=== PATIENT | female | born 1965 | race African-American/Black ===

== ENCOUNTER 2017-04-30 13:13 | Observation (INO) | payer MEDICAID ==
[2017-04-30] MEDS ORDERED: ASPIRIN 81 MG CHEWABLE TAB PO ONE (13:35)
--- NOTE | 2017-04-30 13:38 | EDPHY ---
H & P Stated Complaint: L arm numbness, dizziness x few days Time Seen by Provider: 04/30/17 13:25 HPI/ROS: CHIEF COMPLAINT: Chest pain HISTORY OF PRESENT ILLNESS: The patient is a 51-year-old female with no significant past medical history who comes to the emergency department complaining of chest pain. She states that for the last 2 weeks she has had intermittent tingling in her left arm. Yesterday she began having episodes of lightheadedness. Today she had lightheadedness associated with chest pain. She denies shortness of breath. She denies nausea vomiting or diarrhea. She denies recent illness. She does not take any medications. She denies any focal weakness or deficits. No changes in her speech. She did state that she had slightly slurred speech. REVIEW OF SYSTEMS: Constitutional: denies: chills, fever, recent illness, recent injury EENTM: denies: blurred vision, double vision, nose congestion Respiratory: denies: cough, shortness of breath Cardiac: denies: chest pain, irregular heart rate, lightheadedness, palpitations Gastrointestinal/Abdominal: denies: abdominal pain, diarrhea, nausea, vomiting, blood streaked stools Genitourinary: denies: dysuria, frequency, hematuria, pain Musculoskeletal: denies: joint pain, muscle pain Skin: denies: lesions, rash, jaundice, bruising Neurological: denies: headache, numbness, paresthesia, tingling, dizziness, weakness Hematologic/Lymphatic: denies: blood clots, easy bleeding, easy bruising Immunologic/allergic: denies: HIV/AIDS, transplant EXAM: GENERAL: Well-appearing, well-nourished and in no acute distress. HEAD: Atraumatic, normocephalic. EYES: Pupils equal round and reactive to light, extraocular movements intact, sclera anicteric, conjunctiva are normal. ENT: TMs normal, nares patent, oropharynx clear without exudates. Moist mucous membranes. NECK: Normal range of motion, supple without lymphadenopathy or JVD. LUNGS: Breath sounds clear to auscultation bilaterally and equal. No wheezes rales or rhonchi. HEART: Regular rate and rhythm without murmurs, rubs or gallops. ABDOMEN: Soft, nontender, normoactive bowel sounds. No guarding, no rebound. No masses appreciated. BACK: No CVA tenderness, no spinal tenderness, step-offs or deformities EXTREMITIES: Normal range of motion, no pitting or edema. No clubbing or cyanosis. NEUROLOGICAL: Cranial nerves II through XII grossly intact. Normal speech, normal gait. 5/5 strength, normal movement in all extremities, normal sensation PSYCH: Normal mood, normal affect. SKIN: Warm, dry, normal turgor, no visible rashes or lesions. Source: Patient Exam Limitations: No limitations - Personal History LMP (Females 10-55): Post Menopausal Current Tetanus/Diphtheria Vaccine: Unsure Current Tetanus Diphtheria and Acellular Pertussis (TDAP): Unsure - Medical/Surgical History Hx Asthma: No Hx Chronic Respiratory Disease: No Hx Diabetes: No Hx Cardiac Disease: No Hx Renal Disease: No Hx Cirrhosis: No Hx Alcoholism: No Hx HIV/AIDS: No Hx Splenectomy or Spleen Trauma: No Other PMH: denies - Family History Significant Family History: No pertinent family hx - Social History Smoking Status: Never smoked Alcohol Use: Sober Drug Use: None Constitutional: Initial Vital Signs Temperature (C) 37 C 04/30/17 13:17 Heart Rate 86 04/30/17 13:17 Respiratory Rate 15 04/30/17 13:17 Blood Pressure 117/84 H 04/30/17 13:17 O2 Sat (%) 97 04/30/17 13:17 O2 Delivery Mode Room Air Allergies/Adverse Reactions: No Known Allergies Allergy (Unverified 04/30/17 13:17) Home Medications: Medication Instructions Recorded Herbals/Supplements -Info Only 1 ea PO DAILY 04/30/17 Medical Decision Making - Diagnostics EKG Interpretation: An EKG obtained and was read and documented in trace view. Please see trace view for full reading and report. Sinus rhythm, no acute ischemic changes Imaging Results: Imaging Impressions Chest X-Ray 04/30/17 13:36 Impression: No acute pulmonary disease. ED Course/Re-evaluation: The patient's lab work and imaging thus far are unremarkable. She continues to have mild chest pain and lightheadedness. I recommended admission to the hospital for further observation workup. The patient understands and agrees with plan. I have paged hospital service. 3:05 p.m. I discussed the case with Dr. Edward Brizuela who will admit to the medical service. Differential Diagnosis: Partial list of the Differential diagnosis considered include but were not limited to; chest pain, presyncope, and although unlikely based on the history and physical exam, I also considered arrhythmia, CVA, seizure, radiculopathy, PE. - Data Points Laboratory Results: Laboratory Results 04/30/17 14:00 04/30/17 14:00 04/30/17 04/30/17 04/30/17 14:00 14:00 14:00 WBC 5.18 10^3/uL 10^3/uL (3.80-9.50) RBC 4.34 10^6/uL 10^6/uL (4.18-5.33) Hgb 12.6 g/dL g/dL (12.6-16.3) Hct 37.7 % L % (38.0-47.0) MCV 86.9 fL fL (81.5-99.8) MCH 29.0 pg pg (27.9-34.1) MCHC 33.4 g/dL g/dL (32.4-36.7) RDW 14.2 % % (11.5-15.2) Plt Count 264 10^3/uL 10^3/uL (150-400) MPV 9.4 fL fL (8.7-11.7) Neut % (Auto) 42.3 % % (39.3-74.2) Lymph % (Auto) 41.5 % % (15.0-45.0) Taylor % (Auto) 10.2 % % (4.5-13.0) Eos % (Auto) 5.2 % % (0.6-7.6) Baso % (Auto) 0.6 % % (0.3-1.7) Nucleat RBC Rel Count 0.0 % % (0.0-0.2) Absolute Neuts (auto) 2.19 10^3/uL 10^3/uL (1.70-6.50) Absolute Lymphs (auto) 2.15 10^3/uL 10^3/uL (1.00-3.00) Absolute Monos (auto) 0.53 10^3/uL 10^3/uL (0.30-0.80) Absolute Eos (auto) 0.27 10^3/uL 10^3/uL (0.03-0.40) Absolute Basos (auto) 0.03 10^3/uL 10^3/uL (0.02-0.10) Absolute Nucleated RBC 0.00 10^3/uL 10^3/uL (0-0.01) Immature Gran % 0.2 % % (0.0-1.1) Immature Gran # 0.01 10^3/uL 10^3/uL (0.00-0.10) PT 12.7 SEC SEC (12.0-15.0) INR 0.96 (0.83-1.16) APTT 27.3 SEC SEC (23.0-38.0) D-Dimer 0.28 ug/mLFEU ug/mLFEU (0.00-0.50) Sodium 144 mEq/L mEq/L (134-144) Potassium 4.0 mEq/L mEq/L (3.5-5.2) Chloride 107 mEq/L mEq/L (97-110) Carbon Dioxide 25 mEq/l mEq/l (22-31) Anion Gap 12 mEq/L mEq/L (8-16) BUN 14 mg/dL mg/dL (7-23) Creatinine 1.1 mg/dL H mg/dL (0.6-1.0) Estimated GFR 52 Glucose 93 mg/dL mg/dL (70-100) Calcium 9.4 mg/dL mg/dL (8.5-10.4) Troponin I < 0.012 ng/mL ng/mL (0-0.034) Medications Given: Discontinued Medications Aspirin (Aspirin) 324 mg PO EDNOW ONE Stop: 04/30/17 13:36 Last Admin: 04/30/17 14:17 Dose: Not Given Departure - Departure Disposition: [facility] In[facility] Acute Clinical Impression: Chest pain Qualifiers: Chest pain type: unspecified Qualified Code(s): R07.9 - Chest pain, unspecified Condition: Fair
--- NOTE | 2017-04-30 13:53 | CPEKG ---
Heart Rate: 70 RR Interval: 857 P-R Interval: 160 QRSD Interval: 84 QT Interval: 408 QTC Interval: 441 P [place]: 62 QRS [place]: -14 T Wave [place]: 10 EKG Severity - BORDERLINE ECG - EKG Impression: SINUS RHYTHM EKG Impression: PROBABLE LEFT ATRIAL ABNORMALITY Electronically Signed By: All Chávez 30-Apr-2017 14:11:39
[2017-04-30 14:10] LABS: % IMMATURE GRANULYOCYTES 0.2 % (0.0-1.1); ABSOLUTE IMMATURE GRANULOCYTES 0.01 10^3/uL (0.00-0.10); ADD DIFF? NO; ADD MORPH? NO; ADD SCAN? NO; ATYPICAL LYMPHOCYTE FLAG 0 (0-99); FRAGMENT RBC FLAG 0 (0-99); HEMATOCRIT 37.7 % (38.0-47.0); HEMOGLOBIN 12.6 g/dL (12.6-16.3); LEFT SHIFT FLG 0 (0-99); LIPEMIA HEMOLYSIS FLAG 80 (0-99); MEAN CELL HEMOGLOBIN CONCENTR. 33.4 g/dL (32.4-36.7); MEAN CELL VOLUME 86.9 fL (81.5-99.8); MEAN PLATELET VOLUME 9.4 fL (8.7-11.7); PLATELET CLUMPS FLAG 0 (0-99); PLATELET COUNT 264 10^3/uL (150-400); RED BLOOD CELL COUNT 4.34 10^6/uL (4.18-5.33); RED CELL DISTRIBUTION WIDTH 14.2 % (11.5-15.2)
[2017-04-30 14:19] LABS: APTT 27.3 SEC (23.0-38.0); INR 0.96 (0.83-1.16); PROTIME(PATIENT) 12.7 SEC (12.0-15.0)
[2017-04-30 14:41] LABS: ANION GAP 12 mEq/L (8-16); CALCIUM 9.4 mg/dL (8.5-10.4); CARBON DIOXIDE 25 mEq/l (22-31); CHLORIDE 107 mEq/L (97-110); CREATININE 1.1 mg/dL (0.6-1.0); GLOMERULAR FILTRATION RATE 52; GLUCOSE 93 mg/dL (70-100); SODIUM 144 mEq/L (134-144)
[2017-04-30 14:52] LABS: TROPONIN I < 0.012 ng/mL (0-0.034)
[2017-04-30] MEDS ORDERED: NITROGLYCERIN 0.4 MG BTL SL PRN (15:03)
[2017-04-30] MEDS ORDERED: ONDANSETRON 4 MG/2 ML VIAL IVP PRN (15:54)
--- NOTE | 2017-04-30 16:43 | GHP ---
[f rep st] HISTORY AND PHYSICAL DATE OF ADMISSION: 04/30/2017 CHIEF COMPLAINT: Left arm numbness, headache, dizziness, blurry vision, chest discomfort. HISTORY OF PRESENT ILLNESS: This is a 51-year-old female with no cardiac risk factors who presented to the emergency department today after having an episode of blurry vision that lasted for 5 minute s while she was using her cell phone. This occurred in the setting of having some nonexertional lef t arm and hand numbness over the past 2 weeks. Today, she also developed a headache and some dizzin ess which brought her to the emergency department for further evaluation. She took aspirin and some Gas-X without relief. She denies any syncope or loss of consciousness. Currently her blurry visio n has resolved. She denies any chest pain; however, she continues to have a mild headache and some dizziness. She works as a [employer]. She denies any anxiety or rapid breathing. PAST MEDICAL HISTORY: Denies. PAST SURGICAL HISTORY: Denies. HOME MEDICATIONS: Denies. ALLERGIES: No known drug allergies. SOCIAL HISTORY: She denies any tobacco use. She drinks a beer occasionally. FAMILY HISTORY: Negative for coronary artery disease. Both of her parents had Alzheimer dementia. REVIEW OF SYSTEMS: Comprehensive 10-point review of systems was done and is negative, except for as mentioned in the HPI. PHYSICAL EXAM: VITAL SIGNS: Blood pressure 116/70, pulse 65, respiratory rate 20, O2 sat 98% on ro om air. Temperature afebrile. GENERAL: No acute distress. HEAD: Normocephalic, atraumatic. EYE S: PERRLA. Sclerae anicteric. MOUTH: Moist mucous membranes. NECK: Supple. There is tendernes s to palpation over the left trapezius as well as some reproducible numbness in her left arm with de ep palpation over her perispinal muscles and trapezius. CARDIOVASCULAR: S1, S2. No murmurs, rubs, clicks, gallops. No JVD. No lower extremity edema. PULMONARY: Lungs are clear. No wheezes, ral es, or rhonchi. ABDOMEN: Soft, nontender, nondistended. No guarding or rebound tenderness. Normo active bowel sounds. EXTREMITIES: No clubbing or cyanosis. NEUROLOGIC: Cranial nerves 2-12 gross ly intact. Face is symmetric. There is no pronator drift. 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 Muscle strength 5/5 flexion, extension of the hip and the foot. SKIN: Clear. No rashes. DIAGNOSTICS: WBC is 5.18, hemoglobin 12.6, hematocrit 37.7, platelets 264. Sodium 144, potassium 4 , chloride 107, BUN 14, creatinine 1.1, glucose 93. Troponin less than 0.012. EKG which I visualized and personally interpreted shows sinus rhythm, rate 70 beats per minute, no a cute ischemic changes. Chest x-ray shows no acute pulmonary disease. ASSESSMENT/PLAN: This is a 51-year-old female presenting with: 1. Left arm numbness. It has been going on for 2 weeks, most likely due to cervical muscle spasm. Plan: We will give a trial of NSAIDs and muscle relaxants. I also recommended moist heat and stre tching exercises. I doubt that her 2-week history of arm numbness is cardiac in etiology. 2. Episode of blurry vision with headache and dizziness of unclear etiology. Possibly due to panic attack versus acute stress reaction versus tension headache. Plan: Once again, the patient's symp toms will be treated supportively. I do not feel that her symptoms are very consistent with a trans ient ischemic attack given her lack of risk factors and lack of clear neurologic deficits. The patient will be placed in observation. We will repeat a troponin in 6 hours to complete her wor kup. We will also try to arrange for a treadmill stress test to be done in the hospital or in the [facility] setting. /[id number]/MODL
[2017-04-30] MEDS: IBUPROFEN 600 MG TAB PO PRN (16:57)
[2017-04-30] MEDS: CYCLOBENZAPRINE 10 MG TAB PO PRN (17:32)
[2017-05-01] MEDS: IBUPROFEN 600 MG TAB PO PRN (07:20)
[2017-05-01] MEDS ORDERED: Herbals/Supplements -Info Only PO SCH (09:00)
--- NOTE | 2017-05-01 10:35 | HOSPPROG ---
Hospitalist Progress Note Assessment/Plan: 51 yo F w L arm pain cv: stress test non diagnostic but neg trop and tele (interp by me) no exertional sx will stop workup here cervical spine disease: story and exam suggestive of cervical spine disease will check neck CT today and refer to outpt neurosurgery anemia: mild, follow proph: likely home today LMWH if staying Subjective: stress test did not each target HR but felt low risk. 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 Objective: Vital Signs Temp Pulse Resp BP Pulse Ox 36.7 C 57 L 19 123/80 H 95 05/01/17 07:22 05/01/17 07:22 05/01/17 07:22 05/01/17 07:22 05/01/17 07:22 04/30/17 05/01/17 05/02/17 05:59 05:59 05:59 Intake Total 700 Balance 700 PT 12.7 SEC (12.0-15.0) 04/30/17 14:00 INR 0.96 (0.83-1.16) 04/30/17 14:00 - Physical Exam Constitutional: no apparent distress, appears nourished Eyes: PERRL, anicteric sclera Ears, Nose, Mouth, Throat: moist mucous membranes, hearing normal Cardiovascular: regular rate and rhythym, no murmur, rub, or gallop Respiratory: no respiratory distress, no rales or rhonchi Gastrointestinal: normoactive bowel sounds, soft, non-tender abdomen Genitourinary: no bladder fullness, No zamora in urethra Skin: warm Musculoskeletal: full muscle strength, no muscle tenderness Neurologic: other (some numbness on left forearm but no weakness) Psychiatric: not anxious Lymph, Heme, Immunologic: no cervical LAD ICD10 Worksheet Patient Problems: Problems Problem Status Onset Chest pain Acute
--- NOTE | 2017-05-01 11:15 | CPR ---
[f rep st] NONINVASIVE CARDIAC PROCEDURE REPORT DATE OF PROCEDURE: 05/01/2017 PROCEDURE PERFORMED: Exercise treadmill stress test. REASON FOR TEST: Abnormal EKG with T-wave inversion in the inferior and lateral leads. Resting EKG shows a sinus rhythm with T-wave inversion in the inferior lateral leads. She is otherwise asymptomatic. Her resting blood pressure is 120/80, resting heart rate 73, oxygen saturation was 93%. TREADMILL PORTION: She was exercised according to the Lopez protocol for a total of 7 minutes and 13 seconds. Maximal MET level 8.3, maximal heart rate 109. With exercise, her T-waves in the inferior lateral leads did go upright. Maximal blood pressure 178/80. Maximal heart rate 121, which was not her predicted max heart rate which was 143. She became extremely fatigued in the legs and needed to stop the test prematurely. Her blood pressure and pulse rate spontaneously returned to normal. Heart rate 73, resting blood pressure 120/74. EKG did return to the inverted T-waves in the inferior- lateral leads, which was noted to be alternating with upright T waves, considered to be normal. Tracings were reviewed with David Hooper MD. CONCLUSION: This is a nondiagnostic treadmill stress test due to her inability to reach predicted maximal heart rate. At this time, she is stable to return to her room. /[id number]/MODL MTDD
[2017-05-01 11:36] VITALS: RESP 18; O2SAT 97
[2017-05-01] MEDS ORDERED: IOPAMIDOL (ISOVUE-300) 100 ML BTL ONE (12:24)
[2017-05-01] MEDS: CYCLOBENZAPRINE 10 MG TAB PO PRN (14:05)
[2017-05-01 15:48] VITALS: BP 126/95; PULSE 60; TEMP 98
--- NOTE | 2017-05-02 04:37 | GDS ---
[f rep st] DISCHARGE SUMMARY DISCHARGE DIAGNOSES: 1. Left arm pain. 2. Headache. HOSPITAL COURSE: Please see admission History and Physical by Dr. Edward Brizuela for complete details. She had a negative EKG, troponins. No events on telemetry. She had a CT of her neck showing neuro foraminal narrowing on the left consistent with cervical spine disease. She had a stress test which was nondiagnostic as she did not reach her 85% maximal predicted heart rate. Discussed with Cardio logy that the whole thing was a low risk scenario, so further diagnostic measures were not pursued. I will refer the patient to [facility] as an outpatient. /[id number]/MODL
== END 2017-05-01 19:40 | disposition home or self-care (01) ==
LOC: F2W 16:25
PROVIDERS: ADMIT Family Medicine; ATTEND Internal Medicine
DX: R07.89 Other chest pain (principal); M79.622 Pain in left upper arm; R51 Headache; H53.8 Other visual disturbances; D64.9 Anemia, unspecified
CPT/HCPCS: 71020; 72125; 93005; 93017; 99285; G0378; Q9967